=== PATIENT | male | born 1995 | race African-American/Black ===

== ENCOUNTER 2021-02-12 01:14 | Emergency (ER) | payer OTHER ==
[~2021-02-12] VITALS: Ht 185.4 cm; Wt 108.0 kg
[2021-02-12] MEDS ORDERED: TRAMADOL 50 MG50 MG PO ×3 (02:24→02:51)
[2021-02-12] MEDS ORDERED: PENICILLIN VK500 M1 PO ×3 (02:24→02:51)
[2021-02-12 03:01] VITALS: BP 120/60
== END 2021-02-12 06:28 | disposition home or self-care (01) ==
LOC: ER 01:14
DX: K02.9 Dental caries, unspecified (principal); Z79.899 Other long term (current) drug therapy; Z79.1 Long term (current) use of non-steroidal anti-inflammatories (NSAID)